=== PATIENT | female | born 1985 ===

== ENCOUNTER 2019-09-29 12:39 | Outpatient (CLI) | payer OTHER | END 2019-09-29 12:40 | disposition home or self-care (01) | LOC: SONOGRAMA 12:39 | DX: D44.0 Neoplasm of uncertain behavior of thyroid gland (principal); M54.2 Cervicalgia; M54.5 Low back pain ==

== ENCOUNTER 2019-09-29 13:34 | Outpatient (CLI) | payer OTHER | END 2019-09-29 13:39 | disposition home or self-care (01) | LOC: LAB 13:34 | DX: D51.8 Other vitamin B12 deficiency anemias (principal); D52.8 Other folate deficiency anemias ==

== ENCOUNTER 2019-10-08 07:49 | Outpatient (CLI) | payer OTHER | END 2019-10-08 07:57 | disposition home or self-care (01) | LOC: MRI 07:49 | DX: M54.5 Low back pain (principal); M54.17 Radiculopathy, lumbosacral region | CPT/HCPCS: 72148 ==

== ENCOUNTER 2019-10-27 14:54 | Outpatient (CLI) | payer OTHER | END 2019-10-27 15:20 | disposition home or self-care (01) | LOC: TOM 14:54 | DX: R20.2 Paresthesia of skin (principal) ==